=== PATIENT | male | born 1950 | race Two or more races ===

== ENCOUNTER 2018-04-01 13:12 | Outpatient (CLI) | payer OTHER | END 2018-04-01 13:21 | disposition home or self-care (01) | LOC: SONOGRAMA 13:12 → MAMO-SONO 13:45 | DX: R31.9 Hematuria, unspecified (principal) ==

== ENCOUNTER 2022-11-13 08:50 | Outpatient (CLI) | payer OTHER | END 2022-11-13 08:57 | disposition home or self-care (01) | LOC: RAD 08:50 | PROVIDERS: ATTEND Family Medicine | DX: R10.84 Generalized abdominal pain (principal); N20.9 Urinary calculus, unspecified ==

== ENCOUNTER 2022-11-13 10:08 | Outpatient (CLI) | payer OTHER | END 2022-11-13 10:13 | disposition home or self-care (01) | LOC: NUCLEAR 10:08 | PROVIDERS: ATTEND Internal Medicine Endocrinology, Diabetes & Metabolism | DX: M85.89 Other specified disorders of bone density and structure, multiple sites (principal); Z13.820 Encounter for screening for osteoporosis; I70.92 Chronic total occlusion of artery of the extremities ==

== ENCOUNTER 2023-02-05 09:49 | Outpatient (CLI) | payer OTHER | END 2023-02-05 09:59 | disposition home or self-care (01) | LOC: MRI 09:49 | PROVIDERS: ATTEND Physical Medicine & Rehabilitation | DX: M54.59 Other low back pain (principal) | CPT/HCPCS: 72148 ==

== ENCOUNTER 2024-10-13 13:18 | Outpatient (CLI) | payer OTHER ==
[~2024-10-13 13:18] MED LIST: CELEBREX200MG PO
== END 2024-10-13 13:20 | disposition home or self-care (01) ==
LOC: SONOGRAMA 13:18
PROVIDERS: ATTEND Urology
DX: N40.1 Benign prostatic hyperplasia with lower urinary tract symptoms (principal); R33.9 Retention of urine, unspecified; R31.1 Benign essential microscopic hematuria

== ENCOUNTER → 2025-03-09 | Outpatient (CLI) | payer OTHER | END | disposition home or self-care (01) | LOC: NUCLEAR 09:30 | PROVIDERS: ATTEND Internal Medicine Endocrinology, Diabetes & Metabolism | DX: M85.89 Other specified disorders of bone density and structure, multiple sites (principal); M81.0 Age-related osteoporosis without current pathological fracture ==